=== PATIENT | female | born 1975 | race Caucasian/White ===

== ENCOUNTER 2019-01-11 17:13 | Emergency (ER) | payer BC, SELFPAY ==
[2019-01-11 17:15] VITALS: BP 162/101; PULSE 87; RESP 16; TEMP 36.7; O2SAT 95; BMI 35.4
--- NOTE | 2019-01-11 17:28 | EKG12_ITS ---
Test Reason : EDEMA Blood Pressure : / mmHG Vent. Rate : 075 BPM Atrial Rate : 075 BPM P-R Int : 142 ms QRS Dur : 092 ms QT Int : 380 ms P-R-T Axes : 041 016 028 degrees QTc Int : 424 ms Normal sinus rhythm with sinus arrhythmia Normal ECG Confirmed by DARCI PALUMBO, LISA ([id number]), fan mail editor ARIAN SIM ([id number]) on 01/14/2019 1:43:26 PM Referred By: BARBARA Confirmed By:LISA BEJARANO MD
--- NOTE | 2019-01-11 17:29 | ED.VISSUMM ---
- ER Visit Summary Date of Service: 01/11/19 Chief Complaint: Lower extremity edema History of Present Illness: The patient is a 43 F who has lower extremity edema. This is been ongoing for 2 days. She states that she has been short of breath with exertion but has no chest pain. Her edema is bilateral. She states she is usually not swollen. At times she has mild swelling but it resolves quickly with elevation of the legs. It is not getting any better. She has this quenchable history of CHF. She was admitted to the hospital for bronchitis and when she was an inpatient they said that she was having CHF but when she followed up as an outpatient they told her that she did not have it. She denies having a high salt intake. Physical Examination: Vital signs reviewed. HEENT exam unremarkable. Heart is regular rate and rhythm without murmurs. Lungs are clear to auscultation. Abdomen is soft and nontender. Extremities reveal bilateral lower extremity edema, worse in the ankles. Is nonpitting. Skin exam normal. Neurologic exam normal. Test Results: Laboratory studies are normal except for glucose of 122. EKG is normal sinus rhythm with rate of 75. No ST changes. Chest x-ray normal Emergency Department Course and Treatment: The patient has edema of her lower extremities. It is equal and bilateral. I do not feel that this is a DVT. She has no evidence of CHF. I will give the patient Lasix to see if we can help with her lower extremity edema. She will elevate her legs when she is not walking around. She will follow-up with her doctor this coming week. Treatment Plan: [] Disposition: Discharge Impression: Lower extremity edema This note was generated with [employer] software. It may contain incorrect words, spelling, and punctuation that were not noted in review of the chart prior to signing
--- NOTE | 2019-01-11 17:36 | NURSING ---
NO OLD EKGS
[2019-01-11 17:47] LABS: Absolute Lymphocyte Count 2.18 X10^3/ul (0.83-4.51); Absolute Neutrophil Count 3.4 X10^3/uL (2.0-7.7); Basophil# 0.03 X10^3/uL; Basophil% 0.5 % (0-1); Eosinophils% 3.1 % (0-5); Hematocrit 39.8 % (37-47); Hemoglobin 13.4 g/dl (12.0-15.0); Lymphocyte # 2.18 X10^3/ul (4.0); Lymphocyte % 33.9 % (19-41); Mean Corp Hgb Conc 33.7 g/gl (32-36); Mean Corpuscular Hgb 28.6 pg (27.0-32.0); Mean Platelet Vol. 8.9 fl (6.2-12.0); Monocyte# 0.64 X10^3/uL; Neutrophil # 3.36 X10^3/uL (2.7-7.7); Neutrophil % 52.2 % (47-70); Platelet Count 217 K/mm3 (150-450); RBC Distribution Width CV 13.2 % (11.6-14.6); RBC Distribution Width SD 40.8 fl (35.1-43.9); Red Blood Count 4.68 M/mm3 (4.2-5.4); White Blood Count 6.4 K/mm3 (4.4-11.0)
[2019-01-11 17:48] LABS: POSITIVE COUNT NO; POSITIVE DIFFERENTIAL NO; POSITIVE MORPHOLOGY NO
--- NOTE | 2019-01-11 17:50 | RAD_ITS ---
STUDY: X-RAY CHEST REASON FOR EXAM: Female, 43 years old. Bilateral leg edema. TECHNIQUE: PA and lateral chest. COMPARISON: None. FINDINGS: The lungs are clear and expanded. There is no demonstrated pleural abnormality. Normal size heart. Normal mediastinum and roland. Normal visualized pulmonary arteries. Normal visualized aortic arch and descending thoracic aorta. There are mild degenerative changes of the visualized thoracic spine. Normal visualized ribs, clavicles, and shoulders. There is no demonstrated abnormality of the visualized soft tissue structures of the upper abdomen. RAD/Chest PA and Lateral IMPRESSION: No acute findings. Electronically Signed: Leatha Bagley MD at 18:23 EDT Tel , Service support ,
[2019-01-11 18:06] LABS: Anion Gap 9 (5-15); BUN 13 mg/dL (7-18); BUN/Creat Ratio 21.1 RATIO (10-20); Calcium,Total 9.2 mg/dL (8.5-10.1); Chloride 107 mmol/L (98-107); Creatinine, Serum 0.62 mg/dL (0.55-1.02); EST Glomerular Filtration Rate 112 mL/min (>60); Est Glom Filt Rate - Afr Amer 136 mL/min (>60); Estimated Creatinine Clearance 122.27 ml/min; Glucose 122 mg/dL (74-106); Potassium 3.6 mmol/L (3.5-5.1); Sodium Level 142 mmol/L (136-145)
[2019-01-11 18:19] LABS: BNP,B-Type NATRIURETIC PEPTIDE 2.5 pg/mL (0-100)
--- NOTE | 2019-01-11 18:32 | ED.DEP ---
ED Disposition - Plan for ED Patient: Disposition: Home or Assisted Living Instructions: ED Leg Swelling Bilateral Prescriptions: Furosemide [Lasix] 40 mg PO DAILY #3 tab Referrals: Char Jackson DO [Primary Care Provider] -
[2019-01-11 18:40] VITALS: BP 141/90; PULSE 94; RESP 20; O2SAT 96
[2019-01-11] MEDS: Furosemide 40 MG Tablet PO (18:42)
== END 2019-01-11 18:47 | disposition home or self-care (01) ==
PROVIDERS: Emergency Provider Emergency Medicine; Family Provider Family Medicine; PCP Family Medicine
DX: R60.0 Localized edema (principal); I50.9 Heart failure, unspecified; E11.9 Type 2 diabetes mellitus without complications; E03.9 Hypothyroidism, unspecified; Z79.84 Long term (current) use of oral hypoglycemic drugs; Z79.899 Other long term (current) drug therapy
CPT/HCPCS: 71046; 80048; 83880; 84484; 85025; 93005; 99285; A4216

== ENCOUNTER 2019-01-26 09:38 | Emergency (ER) | payer BC, SELFPAY ==
[2019-01-26 09:39] VITALS: BP 160/92; PULSE 88; RESP 16; TEMP 37.1; O2SAT 95; BMI 38.7
--- NOTE | 2019-01-26 09:54 | EKG12_ITS ---
Test Reason : CP Blood Pressure : / mmHG Vent. Rate : 077 BPM Atrial Rate : 077 BPM P-R Int : 138 ms QRS Dur : 084 ms QT Int : 404 ms P-R-T Axes : 016 007 030 degrees QTc Int : 457 ms Normal sinus rhythm Normal ECG Confirmed by DARCI PALUMBO, LISA ([id number]), editorial specialist ARIAN SIM ([id number]) on 01/28/2019 9:21:24 AM Referred By: PC Confirmed By:LISA BEJARANO MD
--- NOTE | 2019-01-26 09:55 | RAD_ITS ---
STUDY: X-RAY CHEST REASON FOR EXAM: Female, 43 years old. Chest pain TECHNIQUE: Single AP portable view of the chest. COMPARISON: Chest x-ray 01/11/2019 FINDINGS: The lungs are clear and expanded. There is no demonstrated pleural abnormality. Normal size heart. Normal mediastinum and roland. Normal visualized pulmonary arteries. Normal visualized aortic arch and descending thoracic aorta. Normal visualized thoracic spine. Normal visualized ribs, clavicles, and shoulders. There is no demonstrated abnormality of the visualized soft tissue structures of the upper abdomen. RAD/Chest 1 View (Portable) IMPRESSION: Normal x-ray examination of the chest. Electronically Signed: Neyda Lozada, at 10:10 EDT Tel , Service support ,
[2019-01-26 10:04] LABS: Absolute Lymphocyte Count 2.34 X10^3/ul (0.83-4.51); Absolute Neutrophil Count 2.3 X10^3/uL (2.0-7.7); Basophil# 0.03 X10^3/uL; Basophil% 0.6 % (0-1); Eosinophil# 0.19 X10^3/uL; Eosinophils% 3.7 % (0-5); Hematocrit 41.6 % (37-47); Hemoglobin 14.2 g/dl (12.0-15.0); Lymphocyte # 2.34 X10^3/ul (4.0); Mean Corp Hgb Conc 34.1 g/gl (32-36); Mean Corpuscular Hgb 28.7 pg (27.0-32.0); Mean Platelet Vol. 9.2 fl (6.2-12.0); Monocyte# 0.39 X10^3/uL; Monocyte% 7.5 % (0-10); Neutrophil # 2.25 X10^3/uL (2.7-7.7); Neutrophil % 43.2 % (47-70); POSITIVE COUNT NO; POSITIVE DIFFERENTIAL NO; POSITIVE MORPHOLOGY NO; Platelet Count 215 K/mm3 (150-450); RBC Distribution Width CV 12.9 % (11.6-14.6); RBC Distribution Width SD 38.7 fl (35.1-43.9); Red Blood Count 4.95 M/mm3 (4.2-5.4); White Blood Count 5.2 K/mm3 (4.4-11.0)
[2019-01-26 10:06] VITALS: O2SAT 96
[2019-01-26 10:11] VITALS: BP 147/92; PULSE 80; RESP 15; O2SAT 95
--- NOTE | 2019-01-26 10:17 | VDLE_ITS ---
Reason For Study: Swelling RIGHT LEFT GSV is normal. GSV is normal. CFV is compressible, spontaneous, phasic, CFV is compressible, spontaneous, phasic, competent and demonstrates normal competent, and demonstrates normal augmentation. augmentation. FV is compressible, spontaneous, phasic, FV is compressible, spontaneous, phasic, competent and demonstrates normal competent and demonstrates normal augmentation. augmentation. POP V is compressible, spontaneous, phasic, POP V is compressible, spontaneous, phasic, competent and demonstrates normal competent and demonstrates normal augmentation. augmentation. T/P Trunk is compressible. T/P Trunk is compressible. PTV is compressible. PTV is compressible. RT PerV is compressible. LT PerV is compressible. Procedure Exam performed portable in ED. A preliminary report was called and/or faxed to [facility]. Interpretation Summary Deep veins of the lower extremities are bilaterally patent and compressible segmentally. There is no evidence of deep vein thrombosis on either side. Valvular competence appears intact within the proximal deep venous systems bilaterally. The greater saphenous veins appear bilaterally patent and compressible segmentally. Ordering Physician: Prasanth Chavarria Referring Physician: Char Jackson Performed By: Racheal Wang RVT
[2019-01-26 10:22] LABS: Anion Gap 7 (5-15); BUN 14 mg/dL (7-18); BUN/Creat Ratio 22.2 RATIO (10-20); Calcium,Total 8.7 mg/dL (8.5-10.1); Chloride 107 mmol/L (98-107); Creatinine, Serum 0.63 mg/dL (0.55-1.02); EST Glomerular Filtration Rate 109 mL/min (>60); Est Glom Filt Rate - Afr Amer 132 mL/min (>60); Estimated Creatinine Clearance 116.15 ml/min; Glucose 122 mg/dL (74-106); Potassium 3.8 mmol/L (3.5-5.1); Sodium Level 139 mmol/L (136-145)
--- NOTE | 2019-01-26 10:28 | ED.VISSUMM ---
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, she has history of intermittent lower extremity edema, intermittent chest pain send evaluation for the above the past including negative cardiac stress test about a year ago the showed nothing acute, she indicates that about a week ago she developed bilateral lower extremity edema she was seen in the emergency department work-up was negative she is placed on Lasix the edema is improved yesterday she had some nonspecific sense that her blood pressure was elevated she states it normally runs 120/80 again she is an CEMETERY LABORER her blood pressures been running about 1 50-1 60 systolic, today 6am she had a sense of chest discomfort and she came in for evaluation, she indicates she does have diabetes a family history does not smoke does not know of any high cholesterol issues, she has no history of KS PE or DVT, Her prior episodes of chest pain and leg edema etiology was unclear it was suggested to her she had likely had dependent edema because she stands a lot at work denies denies any GI complaints Physical Examination: [] Pressure is 150/80 the rest of the vital signs are unremarkable General, no distress resting comfortably HEENT is generally unremarkable The neck is supple no adenopathy Cardiovascular, regular rate and rhythm Lungs, clear bilateral Abdomen, soft nontender Extremities, no clubbing cyanosis or edema Neurologic, awake alert answering questions appropriately moving all 4 extremities Test Results: [] Emergency Department Course and Treatment: [] EKG shows a sinus rhythm no injury pattern appreciated. Given her age and her complaint screening labs are obtained duplex scan The patient's screening labs EKG are unremarkable chest x-ray unremarkable see all those reports., Second troponin was done it was negative, d-dimer negative, duplex scan of both lower extremities negative for all, her blood pressure went down all on its own without therapy to about 128 it has gone back up to about 140 all the with her I discussed the fact that the exact etiology of her symptoms are unclear she has had chest pain before leg swelling before her outpatient work-up been unremarkable, we discussed the long differential chest pain, we discussed admission versus outpatient management she declined admission preferring outpatient management she is an appoint to see her outpatient providers in the next day or 2 she will see them return for change in symptoms I have explained with regards to her blood pressure we cannot determine from the ED visit if she actually has hypertension requiring specific medical therapy the first approach to hypertension is alteration of diet to avoid salt starting let light exercises by walking more discussing all the above with the outpatient providers and she understands will do so, she agrees to return if symptoms change or intensify Treatment Plan: [] Disposition: [] Home with stable Impression: [] Acute recurrent chest pain etiology unclear This note was generated with [employer] dictation software. It may contain incorrect words, spelling, and punctuation that were not noted in review of the chart prior to signing ED Disposition - Plan for ED Patient: Referrals: Char Jackson DO [Primary Care Provider] -
[2019-01-26 10:32] LABS: D-Dimer Quantitative (DVT/PE) < 0.27 FEU/ug/m (0.27-0.49)
[2019-01-26 11:11] VITALS: BP 128/94; PULSE 82; RESP 15; O2SAT 95
[2019-01-26 12:47] VITALS: BP 140/93; PULSE 78; RESP 18; O2SAT 95
[2019-01-26] MEDS: Acetaminophen 325 MG Tablet 650 MG PO (12:58)
--- NOTE | 2019-01-26 13:31 | ED.DEP ---
ED Disposition - Plan for ED Patient: Instructions: ED Chest Pain Atypical Unkn Cause Referrals: Char Jackson DO [Primary Care Provider] -
[2019-01-26 13:39] VITALS: BP 140/93; PULSE 85; RESP 20; O2SAT 96
== END 2019-01-26 13:39 | disposition home or self-care (01) ==
LOC: ED 10:44
PROVIDERS: Emergency Provider Emergency Medicine; Family Provider Family Medicine; PCP Family Medicine
DX: R07.9 Chest pain, unspecified (principal); I10 Essential (primary) hypertension; M79.89 Other specified soft tissue disorders; E11.9 Type 2 diabetes mellitus without complications
CPT/HCPCS: 36415; 71045; 80048; 84484; 85025; 85379; 93005; 93970; 99285; A4216

== ENCOUNTER 2019-09-10 17:13 | Emergency (ER) | payer SELFPAY ==
[2019-09-10 17:13] VITALS: BP 134/99; PULSE 75; RESP 18; O2SAT 95
[2019-09-10 17:14] VITALS: BP 134/99; PULSE 85; RESP 18; TEMP 36.8; O2SAT 95; BMI 38.0
--- NOTE | 2019-09-10 17:21 | ED.DCSUM_ITS ---
History of Present Illness Chief Complaint: Allergic Reaction Informant: Patient Onset: Hours - less than 1 Context: Gradual Onset - just after started eating tortro pasta w/ marinara sauce Timing: Continuous Quality: tightening/swelling Location: throat Current Severity: Moderate Maximum Severity: Moderate Worsened by: swallowing Relieved by: nothing Associated Symptoms: nausea. mild wheezing. deeper voice. Narrative: No lightheadedness, syncope/near syncope, edema, rash, itching, chest pain, or vomiting although she feels like she may. 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 However after finishing eating a bowl of this pasta, her symptoms worsened so she presents to the emergency department. She did not try any medications prior to arrival. Past Medical History - Allergies and Home Meds Allergies/Adverse Reactions: Allergies fentanyl Allergy (Verified 01/26/19 09:41) Anaphylaxis hydromorphone [From Dilaudid] Allergy (Verified 01/26/19 09:41) Anaphylaxis Penicillins [PCN] Allergy (Verified 01/26/19 09:41) Unknown Primary Care Physician: Char Jackson DO [NON-STAFF] - Lives: Spouse/ Significant Other Smoking Status: Never smoker Drugs: None Review of Systems General: Denies: Chills, Fever, Sweats Eyes: Denies: Visual changes - bilaterally, Diplopia ENT: Reports: - - throat tightening. changed voice.. Denies: Rhinorrhea, Sore throat Cardiovascular: Denies: Chest pain, Palpitations Respiratory: Reports: Dyspnea - mild wheezing. Denies: Cough, Dyspnea on exertion Gastrointestinal: Denies: Abdominal pain, Nausea, Vomiting, Diarrhea, Melena, Hematochezia Genitourinary: Denies: Dysuria, Hematuria, Frequency Musculoskeletal: Denies: Back pain, Swelling, Extremity Pain Skin: Denies: Rash, Wounds Neurological: Denies: Headache, Weakness, Numbness Physical Exam Vital Signs/Narrative: Vital Signs Temp Pulse Resp BP Pulse Ox 09/10/19 17:14 98.3 F 85 18 134/99 H 95 09/10/19 17:13 75 18 134/99 H 95 Inital Vital Signs reviewed: Yes General: Well nourished, Well developed, No Acute Distress Head: Normocephalic, Atraumatic Eyes: Perrl, EOMI ENT: Moist mucous membranes, No rhinorrhea, - - no stridor Neck: Supple, Nontender Cardiovascular: Regular rate, Regular rhythm, No murmurs. Negative for: Tachycardia Respiratory: No distress, CTA bilaterally, Chest nontender. Negative for: Wheezing Abdomen: Soft, Nontender, Nondistended, Normal bowel sounds Back: Nontender, Normal Inspection Extremities: Nontender, No edema Skin: Normal color, No rash, No Trauma Neurological: Alert, Oriented x3, Cranial nerves II-XII grossly intact, Normal Strength, Normal Sensation Psychological: Normal affect, Normal Mood Diagnostic/Tx/Re-eval - Medical Decision Making And considering early anaphylaxis/anaphylactoid reaction, epinephrine 0.3 mg IM was given. She had quick resolution of her symptoms. She had felt a little jittery from the adrenaline, she was also given Zofran, she felt tired afterwards but after about 2 hours she had no recurrence of symptoms. I feel comfortable discharging her home now. Likely something in the sauce that she reacted to. She is on lisinopril, however I doubt this is related. She did not have it today, and the symptoms started just after eating a few bites of this bowl of food, and as she finished the bowl the symptoms became worse. Prescribed an EpiPen, discussed reasons to return, and advised to follow-up. She is in agreement with this plan. 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
[2019-09-10 17:29] VITALS: O2SAT 96
--- NOTE | 2019-09-10 17:30 | ED.RN ---
PT WITH THROAT TIGHTNESS, AND SCRATCHY THROAT. ALSO C/O NAUSEA.
[2019-09-10] MEDS: Ondansetron 4 MG/2 ML Vial IV (17:39)
[2019-09-10 18:39] VITALS: BP 114/68; PULSE 65; RESP 15; O2SAT 95
[2019-09-10 18:58] VITALS: BP 122/65; PULSE 67; RESP 15; O2SAT 98
== END 2019-09-10 18:59 | disposition home or self-care (01) ==
PROVIDERS: Emergency Provider Emergency Medicine; Family Provider Family Medicine; PCP Family Medicine
DX: T78.09XA Anaphylactic reaction due to other food products, initial encounter (principal); Z91.018 Allergy to other foods
CPT/HCPCS: 96372; 96374; 99285; A4216; J2405

== ENCOUNTER 2019-12-04 18:04 | Emergency (ER) | payer SELFPAY ==
[2019-12-04 18:05] VITALS: BP 147/85; PULSE 65; RESP 18; TEMP 36.9; O2SAT 95; BMI 35.7
[2019-12-04 18:06] VITALS: BP 147/85; PULSE 65; RESP 18; TEMP 36.9; O2SAT 95
--- NOTE | 2019-12-04 18:21 | ED.VIS.GEN ---
History of Present Illness Chief Complaint: Cough Informant: Patient Onset: Month(s) - 1 month Context: Gradual Onset Current Severity: Mild Maximum Severity: Moderate Narrative: Patient presents with 1 month history of cough. She states she has a lot of problems with allergies. Around the first of the year she developed problems with sinus and chest congestion. That finally cleared up within a month ago she developed a recurrent cough. She states yesterday she felt a lot of chest congestion was able to cough up some clear sputum followed by some blood-streaked sputum. 1 day last week she had a fever that self resolved and she has not had any recurrent fever. She has occasional wheezing. She has never been diagnosed with asthma. 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 She denies any positive cases of coronavirus there. - Past Medical History (1) Hypertension Status: Chronic (2) Depression Status: Chronic (3) Diabetes Status: Chronic Past Medical History - Allergies and Home Meds Allergies/Adverse Reactions: Allergies fentanyl Allergy (Verified 12/04/19 18:06) Anaphylaxis hydromorphone [From Dilaudid] Allergy (Verified 12/04/19 18:06) Anaphylaxis Penicillins [PCN] Allergy (Verified 12/04/19 18:06) Unknown Primary Care Physician: Angel Holloway MD [Primary Care Provider] - Prior records reviewed: Yes Smoking Status: Never smoker Review of Systems General: Reports: Fever - Single fever last week.. Denies: Chills Eyes: Denies: Visual changes - bilaterally ENT: Denies: Bilateral ear pain Cardiovascular: Denies: Chest pain Respiratory: Reports: Cough, Sputum. Denies: Dyspnea Gastrointestinal: Denies: Abdominal pain, Nausea, Vomiting, Diarrhea Genitourinary: Denies: Dysuria Musculoskeletal: Denies: Extremity Pain Skin: Denies: Rash Neurological: Denies: Headache Hematologic: Denies: Easy bruising, Easy bleeding Allergy: Denies: Uticaria Physical Exam Vital Signs/Narrative: Vital Signs Temp Pulse Resp BP Pulse Ox 12/04/19 18:06 98.4 F 65 18 147/85 H 95 12/04/19 18:05 98.4 F 65 18 147/85 H 95 Inital Vital Signs reviewed: Yes General: Well nourished, Well developed Head: Normocephalic ENT: Moist mucous membranes, TM's clear, - - Plus tonsils. No significant erythema or exudate. Uvula midline. Neck: Supple Cardiovascular: Regular rate, Regular rhythm Respiratory: No distress, CTA bilaterally Abdomen: Soft, Nontender, Nondistended Extremities: Nontender Skin: Normal color Neurological: Alert, Oriented x3 Psychological: Normal affect Diagnostic/Tx/Re-eval Impressions Chest X-Ray 12/04/19 18:36 IMPRESSION: Normal x-ray examination of the chest. Electronically Signed: Dex Blackman MD at 18:54 EDT , Service support , 12/04/19 18:36 Chest 1 View (Portable) [RAD] Stat - Medical Decision Making X-ray results are discussed with the patient. She be treated the course of doxycycline and will be given Hycodan syrup to help with cough. She does have allergies documented to Williamson and Dilaudid but states she has taken Williamson in the past without difficulty. Patient is given return instructions. ED Disposition - Plan for ED Patient: Disposition: Home or Assisted Living Diagnosis: Bronchitis Instructions: Acute Bronchitis Prescriptions: Doxycycline 100 mg PO BID #20 cap Hydrocodone Bit/Homatropine [Hycodan Syrup] 10 ml PO Q6H PRN PRN #120 mls PRN Reason: Cough Referrals: Angel Holloway MD [Primary Care Provider] - 1-2 Weeks
[2019-12-04 18:32] VITALS: O2SAT 95
--- NOTE | 2019-12-04 18:36 | RAD_ITS ---
STUDY: X-RAY CHEST REASON FOR EXAM: Female, 44 years old. WORSENING COUGH X1 MONTH TECHNIQUE: Single AP portable view of the chest. COMPARISON: 01/26/2019. FINDINGS: The lungs are clear and expanded. There is no demonstrated pleural abnormality. Normal size heart. Normal mediastinum and roland. Normal visualized pulmonary arteries. Normal visualized aortic arch and descending thoracic aorta. Normal visualized thoracic spine. Normal visualized ribs, clavicles, and shoulders. There is no demonstrated abnormality of the visualized soft tissue structures of the upper abdomen. RAD/Chest 1 View (Portable) IMPRESSION: Normal x-ray examination of the chest. Electronically Signed: Dex Blackman MD at 18:54 EDT , Service support ,
[2019-12-04 19:06] VITALS: BP 142/78; PULSE 72; RESP 18; TEMP 37; O2SAT 96
[2019-12-04 19:42] VITALS: BP 142/78; PULSE 75; RESP 18; O2SAT 94
[2019-12-04] MEDS: Doxycycline 100 MG CAPSULE PO (19:48)
== END 2019-12-04 19:53 | disposition home or self-care (01) ==
PROVIDERS: Emergency Provider Emergency Medicine; PCP Family Medicine
DX: J40 Bronchitis, not specified as acute or chronic (principal); E11.9 Type 2 diabetes mellitus without complications; F32.9 Major depressive disorder, single episode, unspecified; I10 Essential (primary) hypertension
CPT/HCPCS: 71045; 99283